=== PATIENT | male | born 1990 | race Two or more races ===

== ENCOUNTER 2021-02-27 19:18 | Emergency (ER) | payer SELFPAY ==
[~2021-02-27] VITALS: Ht 162.6 cm; Wt 74.8 kg
[2021-02-27] MEDS ORDERED: METF-440 PO (19:37)
--- NOTE | 2021-02-27 20:01 | NUR ---
Patient discharged to home in stable condition. Written and verbal after care instructions given. Patient verbalizes understanding of instructions. Stressed follow up or return to ER for worsening s/s.
== END 2021-02-27 20:01 | disposition home or self-care (01) ==
LOC: ER 19:22
DX: N48.89 Other specified disorders of penis (principal); E11.9 Type 2 diabetes mellitus without complications; E78.5 Hyperlipidemia, unspecified; Z79.84 Long term (current) use of oral hypoglycemic drugs; Z86.73 Personal history of transient ischemic attack (TIA), and cerebral infarction without residual deficits
CPT/HCPCS: A4663

== ENCOUNTER 2021-08-07 10:42 | Emergency (ER) | payer MEDICAID ==
[~2021-08-07] VITALS: Ht 157.5 cm; Wt 77.1 kg
[~2021-08-07 10:42] MED LIST: METF-440 PO
[2021-08-07] MEDS ORDERED: ATOR80TA PO (10:58)
[2021-08-07 12:09] LABS: HEMATOCRIT 44.4 % (36.7-47.1); MEAN CORPUSCULAR HEMOGLOBIN 29.8 uug (23.8-33.4); MEAN CORPUSCULAR VOLUME 88.4 fL (73.0-96.2); PLATELET COUNT (AUTO) 340 K/uL (152-348)
[2021-08-07 12:27] LABS: CARBON DIOXIDE 23 mmol/L (21-32); CHLORIDE 105 mmol/L (98-107); CREATININE 0.6 mg/dL (0.6-1.3); GLUCOSE 146 mg/dL (74-106); POTASSIUM 3.9 mmol/L (3.5-5.1); UREA NITROGEN, BLOOD 12 mg/dL (7-18)
--- NOTE | 2021-08-07 12:28 | NUR ---
PT IS IN ROOM #1B. DR TURNER EVALUATED THE PT.
[2021-08-07 12:33] LABS: ALANINE AMINOTRANSFERASE 66 U/L (16-63); ALKALINE PHOSPHATASE 63 U/L (50-136); ASPARTATE AMINOTRANSFERASE 20 U/L (15-37); BILIRUBIN,TOTAL 0.6 mg/dL (0.2-1.0); LIPASE 111 U/L (73-393); TOTAL PROTEIN, SERUM 7.5 g/dL (6.4-8.2)
[2021-08-07] MEDS ORDERED: KETOROLAC TROMETHAMINE 15 MG INJ IVP ONE (13:45)
[2021-08-07] MEDS ORDERED: KETOROLAC TROMETHAMINE 15 MG INJ ONE (14:07)
--- NOTE | 2021-08-07 15:03 | NUR ---
PT WAS D/C TO HOME AFTER DR TURNER EVALUATION. D/C INSTRUCTIONS GIVEN TO THE PT BY DR TURNER.
[2021-08-07 15:05] VITALS: BP 131/69
== END 2021-08-07 15:05 | disposition home or self-care (01) ==
LOC: ER 10:42
DX: R10.9 Unspecified abdominal pain (principal); Z86.73 Personal history of transient ischemic attack (TIA), and cerebral infarction without residual deficits; Z79.84 Long term (current) use of oral hypoglycemic drugs; E78.5 Hyperlipidemia, unspecified; Z79.899 Other long term (current) drug therapy; E11.65 Type 2 diabetes mellitus with hyperglycemia; R03.0 Elevated blood-pressure reading, without diagnosis of hypertension
CPT/HCPCS: 36415; 80053; 83690; 85025; 93005; 96374; 99284; J1885; A4663

== ENCOUNTER 2023-02-27 11:07 | Emergency (ER) | payer SELFPAY ==
[~2023-02-27] VITALS: Ht 157.5 cm; Wt 77.1 kg
[~2023-02-27 11:07] MED LIST changes: +ATOR80TA PO
--- NOTE | 2023-02-27 11:19 | NUR ---
seen and examined by MD Gold
[2023-02-27] MEDS ORDERED: ONDANSETRON 4 MG/2 ML VIAL IV ONE (11:30)
[2023-02-27] MEDS ORDERED: OXYMETAZOLINE NASAL 0.05% 15 ML SPRAY NS ONE ×2 (11:30→11:38)
[2023-02-27] MEDS ORDERED: CETIRIZINE HCL 10 MG TABLET PO ONE (11:30)
[2023-02-27] MEDS ORDERED: IV NS 1000 ML 1,000 ML IV ONE ×2 (11:30→13:30)
[2023-02-27] MEDS ORDERED: PSEUDOEPHEDRINE HCL 30 MG TABLET PO ONE (11:30)
--- NOTE | 2023-02-27 11:31 | NUR ---
collected covid and sent to lab
[2023-02-27] MEDS ORDERED: ONDANSETRON 4 MG/2 ML VIAL ONE (11:38)
[2023-02-27] MEDS ORDERED: PSEUDOEPHEDRINE HCL 30 MG TABLET ONE (11:39)
[2023-02-27] MEDS ORDERED: CETIRIZINE HCL 10 MG TABLET ONE (11:40)
[2023-02-27] MEDS ORDERED: METF-495 PO (11:43)
[2023-02-27 12:11] LABS: HEMATOCRIT 43.3 % (36.7-47.1); MEAN CORPUSCULAR HEMOGLOBIN 29.7 uug (23.8-33.4); MEAN CORPUSCULAR VOLUME 87.2 fL (73.0-96.2); PLATELET COUNT (AUTO) 358 K/uL (152-348)
[2023-02-27 13:03] LABS: CREATININE 0.8 mg/dL (0.6-1.3)
[2023-02-27] MEDS ORDERED: INSULIN REGULAR, HUMAN 300 UNIT/3 ML VIAL IV ONE (13:30)
--- NOTE | 2023-02-27 13:37 | NUR ---
blood sugar re-check 327 informed MD Gold, cancelled insulin order
[2023-02-27 14:34] VITALS: BP 118/80
[2023-02-28] MEDS ORDERED: FLUTICASONE PROP NASAL SPRAY 16 GM BOTTLE NS SCH (09:00)
== END 2023-02-27 14:35 | disposition home or self-care (01) ==
LOC: ER 11:07
DX: J32.9 Chronic sinusitis, unspecified (principal); R42 Dizziness and giddiness; R51.9 Headache, unspecified; J06.9 Acute upper respiratory infection, unspecified; B97.89 Other viral agents as the cause of diseases classified elsewhere; E11.9 Type 2 diabetes mellitus without complications; Z86.73 Personal history of transient ischemic attack (TIA), and cerebral infarction without residual deficits; Z79.899 Other long term (current) drug therapy; Z20.822 Contact with and (suspected) exposure to COVID-19
CPT/HCPCS: 99284; 96374; 71045; 96361; 87426; 87804 ×2; 80048; 85025; 84484; 36415; J2405; J7040 ×2; 93005; A4663; J3535